=== PATIENT | male | born 1975 | race Caucasian/White ===

== ENCOUNTER 2016-08-31 07:18 | Emergency (ER) | payer MEDICAID ==
[~2016-08-31] VITALS: Ht 172.7 cm; Wt 81.8 kg
[2016-08-31 08:01] LABS: BASOPHILS # (AUTO) 0.04 K/uL (0.00-0.20); BASOPHILS % (AUTO) 0.2 % (0.0-2.0); EOSINOPHILS % (AUTO) 0 % (1.0-6.0); HEMATOCRIT 43.1 % (41-53); HEMOGLOBIN 14.4 g/dL (13.5-17.5); LYMPHOCYTES # (AUTO) 1.5 K/uL (1.0-4.8); LYMPHOCYTES % (AUTO) 7.7 % (22.0-44.0); MEAN CORPUSCULAR HEMOGLOBIN 28.9 pg (26.0-34.0); MEAN CORPUSCULAR HGB CONC 33.4 G/dL (31.0-37.0); MEAN CORPUSCULAR VOLUME 86 fL (80-100); MONOCYTES # (AUTO) 0.7 K/uL (0.1-1.0); MONOCYTES % (AUTO) 3.4 % (2.0-9.0); NEUTROPHILS # (AUTO) 17.7 K/uL (1.8-7.7); PLATELET COUNT (AUTO) 515 K/uL (150-450); RED BLOOD CELL COUNT(AUTO) 4.99 MIL/uL (4.50-5.90); RED CELL DISTRIBUTION WIDTH 15.5 % (11.5-14.5); WHITE BLOOD COUNT (AUTO) 19.9 K/uL (4.5-11.0)
[2016-08-31 08:02] LABS: NEUTROPHILS % (AUTO) 88.7 % (40.0-70.0)
[2016-08-31 08:15] LABS: ANION GAP 15 mmol/L (8-16); CALCIUM, TOTAL 9.8 mg/dL (8.8-10.5); CARBON DIOXIDE 25 mmol/L (22-29); CHLORIDE 97 mmol/L (98-107); CREATININE 1.99 mg/dL (0.60-1.30); GLOMERULAR FILTR. RATE CALC 37 mL/min (>60); POTASSIUM 3.2 mmol/L (3.5-5.1); SODIUM SERUM 137 mmol/L (136-145); UREA NITROGEN, BLOOD 31 mg/dL (7-18)
[2016-08-31 08:20] LABS: ALANINE AMINOTRANSFERASE 33 U/L (12-78); ALBUMIN 5.3 g/dL (3.4-5.0); ASPARTATE AMINOTRANSFERASE 45 U/L (15-37); BILIRUBIN,TOTAL 0.9 mg/dL (0.1-1.0); TOTAL PROTEIN, SERUM 9.2 g/dL (6.4-8.2)
[2016-08-31] MEDS ORDERED: LORazepam 1 MG TABLET PO ONE (10:15)
[2016-08-31 13:13] VITALS: BP 132/85
== END 2016-08-31 13:24 | disposition home or self-care (01) ==
LOC: EMS 07:21
DX: F25.9 Schizoaffective disorder, unspecified (principal); M79.673 Pain in unspecified foot; F15.90 Other stimulant use, unspecified, uncomplicated
CPT/HCPCS: 36415; 80053; 80307; 85025; 99284; G0480